=== PATIENT | female | born 1965 | race Caucasian/White ===

== ENCOUNTER 2021-10-22 06:53 | Emergency (ER) | payer OTHER, SELFPAY ==
--- NOTE | ~2021-10-22 | XR_ITS ---
EXAMINATION: XR chest 2V DATE: 10/22/2021 07:32 INDICATION: Shortness of breath. Left chest pain. Cough. TECHNIQUE: Frontal and lateral views of the chest were obtained. COMPARISON: Chest single view 03/11/2011 FINDINGS: The chest demonstrates clear lungs without pneumonia, pleural effusion, or pneumothorax. Th e heart size is normal. Surgical clips in the right upper quadrant are likely from cholecystectomy. IMPRESSION: 1. No acute cardiopulmonary disease. Reviewed, dictated and finalized at location A. [employer]ER
[2021-10-22 06:56] VITALS: BP 188/104; PULSE 93; RESP 22; TEMP 36.8; O2SAT 94; O2SAT 95
--- NOTE | 2021-10-22 07:08 | ECG_ITS ---
Measurements Intervals [place] Rate: 85 P: 53 SD: 184 QRS: 37 QRSD: 86 T: 50 QT: 364 QTc: 434 Interpretive Statements SINUS RHYTHM POSSIBLE LEFT ATRIAL ENLARGEMENT [-0.1mV P-WAVE IN V1/V2] RSR' V1 AND V2 BORDERLINE ECG NO PREVIOUS ECG AVAILABLE FOR COMPARISON Electronically Signed On 10-22-2021 14:28:12 [employer] by Ramses Hurst M.D.
--- NOTE | 2021-10-22 07:24 | ED.SOB ---
HPI - SOB/Dyspnea General Chief Complaint: Shortness of Breath/Dyspnea Stated Complaint: shortness of breath Time Seen by Provider: 10/22/21 07:01 Source: patient and RN notes reviewed Mode of arrival: ambulatory Limitations: no limitations History of Present Illness HPI Narrative: This is 56 year old female smoke who presents for evaluation of shortness of breath. She noticed shortness of breath around 3 am this morning when she tried to lay back down in bed. She feels like she is unable to take deep breath and she developed productive cough . She is also reporting wheezing. She had 1 other similar episode before but it did not last this long. She is having associated sinus drainage but denies fever or chills. She was diagnosed with covid 1 month ago. She denies history of CHF, PE or DVT. She is not having leg swelling. She states she tried her cats albuterol but it caused her to have chest pain. MD elicited complaint: shortness of breath Onset (ago): hour(s) Context: recent illness (covid 1 month ago) Exacerbating factors: lying flat Relieving factors: nothing Treatment prior to arrival: bronchodilator Related Data Home oxygen amount: none Allergies Allergy/AdvReac Type Severity Reaction Status Date / Time SWEETNER Allergy Unknown Unknown Uncoded 10/22/21 07:07 Review of Systems Review of Systems: All systems reviewed & are unremarkable except as noted in HPI and below Constitutional: Constitutional: Denies chills and Denies fever(s) ENT: Reports nasal congestion and Denies sore throat Cardiovascular: Cardiovascular: Reports chest pain and Denies radiating jaw, neck or arm pain Respiratory: Respiratory: Reports cough, Reports dyspnea and Reports wheezing Gastrointestinal: Gastrointestinal: Denies abdominal pain, Reports nausea and Denies vomiting Neurologic: Reports headache(s) [facility] Past Medical History Medical History (Updated 10/22/21 @ 08:22 by Coty Espinal MD) Hypertension Hypothyroidism Social History Social History (Updated 10/22/21 @ 07:24 by Coty Espinal MD) Smoking packs per day: 1 Smoking cigarettes per day: 20.0 Smoking status: Current every day smoker Exam Const: General: no acute distress and alert Nutritional Appearance: obese Orientation/consciousness: patient oriented x3 Eyes: EOM: EOMs intact bilaterally Resp: Effort & Inspection: normal respiratory effort and no retractions Auscultation: clear to auscultation bilaterally Cardio: Rate: regular rate Rhythm: regular rhythm Heart sounds: no murmurs GI: GI Palp: Yes Soft to palpation, No Tenderness to palpation present (GI) and No Guarding due to palpation present (GI) Auscultation: normal bowel sounds Skin: General skin exam: normal color Rashes: no rashes Neuro: General: patient oriented x3, moves all extremities and CN's II-XI intact bilaterally Extrem: General: normal to inspection Psych: Mental Status: mental status grossly normal Affect: normal affect Course Reevaluation(s) Reevaluation #1: Patient states she feels better after albuterol tx. She was able to ambulate and she reports she feels better. able to keep oxygen saturation above 91% on room air. I Discussed discharge plan to discharge with albuter, steroids and follow up with PCP next week. Date: 10/22/21 Time: 08:20 Vital Signs Vital signs: Vital Signs Temperature 98.2 F 10/22/21 06:56 Pulse Rate 93 10/22/21 06:56 Respiratory Rate 22 H 10/22/21 06:56 Blood Pressure 188/104 H 10/22/21 06:56 Pulse Oximetry 95 10/22/21 06:56 Temperature 98.2 F 10/22/21 06:56 Pulse Rate 87 10/22/21 08:36 Respiratory Rate 16 10/22/21 08:36 Blood Pressure 150/97 H 10/22/21 08:36 Pulse Oximetry 94 10/22/21 08:36 MDM - SOB/Dyspnea Medical Records Attestation: I reviewed the patient's medical records. Lab Data Attestation: I reviewed the patient's lab results. Result diagrams: 10/22/21 07:16
[2021-10-22 07:33] LABS: Basophils Absolute Auto 0.2 K/mm3 (0.0-0.1); Basophils Percent Auto 1.5 % (0.2-1.2); Eosinophils Absolute Auto 0.3 K/mm3 (0-0.3); Eosinophils Percent Auto 2.6 % (0-4.4); Hematocrit 52.9 % (37.0-47.0); Hemoglobin 17.3 g/dL (12.0-15.0); Immature Granulocyte Absolute 0.04 K/mm3 (0.00-0.031); Immature Granulocyte Percent A 0.4 % (0-0.5); Lymphocytes Percent Auto 30.5 % (18.3-44.2); Mean Corpuscular HGB Conc 32.7 g/dl (32-36); Mean Corpuscular Hemoglobin 29.5 pg (26-34); Mean Corpuscular Volume 90.1 fl (80-100); Mean Platelet Volume 9.2 fl (7.4-10.4); Monocytes Absolute Auto 0.9 K/mm3 (0.1-0.6); Neutrophils Absolute Auto 5.5 K/mm3 (1.3-6.7); Platelet Count Result 366 k/mm3 (150-375); Red Blood Count 5.87 M/mm3 (4.2-5.4); Red Cell Distribution Width 14.2 % (11.5-14.5); White Blood Count 9.9 K/mm3 (4.5-10.0)
[2021-10-22 07:34] LABS: Alanine Aminotransferase 76 U/L (4-35); Albumin Level 4.3 g/dL (3.5-5.1); Alkaline Phosphatase 130 U/L (38-126); Anion Gap 8 mmol/L (8-16); Aspartate Amino Transferase 44 U/L (14-36); Bilirubin,Total 0.5 mg/dL (0.2-1.3); Blood Urea Nitrogen 24 mg/dL (7-17); Calcium 8.9 mg/dL (8.4-10.2); Carbon Dioxide 31 mmol/L (22-30); Chloride 104 mmol/L (98-107); Estimated CRCL calculation 93 ml/min; Estimated Glomerular Filt Rate > 60; Glucose 105 mg/dL (65-110); Potassium 3.7 mmol/L (3.4-5.0); Sodium 143 mmol/L (137-145)
[2021-10-22] MEDS: ALBUTEROL SULFATE (*SP) AEROSOL 1 PUFF 2 PUFF INHALATION (07:36)
[2021-10-22 07:39] LABS: Prothrombin Time 12.6 Seconds (11.1-14.7)
[2021-10-22 07:40] LABS: Partial Thromboplastin Time 31.2 SECONDS (22.3-36.8)
[2021-10-22 07:42] LABS: D Dimer 0.32 ug/mL (<0.48)
[2021-10-22 07:44] LABS: NT Pro B Type Natriuretic Pept 64 pg/mL (5-100); Troponin I < 0.012 ng/mL (0.000-0.034)
[2021-10-22 07:45] VITALS: BP 154/102; PULSE 84; RESP 18; O2SAT 92
[2021-10-22] MEDS: lisinopriL 10 MG TABLET PO (07:45)
[2021-10-22 07:58] VITALS: BP 143/85
[2021-10-22] MEDS: hydroCHLOROthiazide 12.5 MG CAPSULE PO (08:19)
[2021-10-22 08:36] VITALS: BP 150/97; PULSE 87; RESP 16; O2SAT 94
== END 2021-10-22 08:37 | disposition home or self-care (01) ==
PROVIDERS: Emergency Provider General Practice; PCP Physician Assistant
DX: R06.00 Dyspnea, unspecified (principal); E03.9 Hypothyroidism, unspecified; I10 Essential (primary) hypertension; Z86.16 Personal history of COVID-19; R94.31 Abnormal electrocardiogram [ECG] [EKG]
CPT/HCPCS: 36415; 71046; 80053; 83880; 84484; 85025; 85380; 85610; 85730; 93005; 99284; A9270

== ENCOUNTER 2022-03-31 16:01 | Emergency (ER) | payer OTHER, SELFPAY ==
--- NOTE | ~2022-03-31 | XR_ITS ---
XR wrist LT min 3V DATE: 03/31/2022 16:39 INDICATION: Fell on left wrist today. Medial swelling. Generalized pain. TECHNIQUE: 3 views COMPARISON: 03/11/2011 left wrist FINDINGS: There is a virtually nondisplaced intra-articular fracture of the distal radius with dorsal inclination of the distal radial articular surface. The distal ulna is intact. Radiocarpal alignment is preserved. There is mild widening at the scapholunate joint. Minimal osteoarthritis at the first carpometacarpal joint. IMPRESSION: Virtually nondisplaced intra-articular fracture of the distal radius with dorsal inclinat ion of distal radial articular surface Scapholunate joint widening, new since 03/11/2011 Reviewed, dictated and finalized at location B. IMPRESSION: Virtually nondisplaced intra-articular fracture of the distal radiu s with dorsal inclination of distal radial articular surface Scapholunate joint widening, new since 03/11/2011
[2022-03-31 16:02] VITALS: BP 148/74; PULSE 91; RESP 16; TEMP 36.1; O2SAT 97
--- NOTE | 2022-03-31 16:36 | ED.UPPEXIN ---
HPI - Extremity Injury (Upper) General Chief Complaint: Extremity Injury, Upper Stated Complaint: left wrist pain, fall Time Seen by Provider: 03/31/22 16:17 Source: patient, RN notes reviewed and old records reviewed Mode of arrival: ambulatory Limitations: no limitations History of Present Illness HPI narrative: This is a 57 year old female right hand dominant who presents for evaluation of left wrist pain s/p fall. Patient had just mopped her floor, and she slipped walking into kitchen. She fell onto her left wrist and right knee. She has been able to ambulate but she does have right knee abrasion. She has chronic left wrist pain but after the fall she has left wrist deformity and swelling. She also reports chronic numbness to lateral left arm, wrist and fingers. She denies hitting her head or LOC. Pain worse with movement. Related Data Allergies Allergy/AdvReac Type Severity Reaction Status Date / Time SWEETNER Allergy Unknown Unknown Uncoded 10/22/21 07:07 Review of Systems Review of Systems: All systems reviewed & are unremarkable except as noted in HPI and below Constitutional: Constitutional: Denies chills and Denies fatigue Cardiovascular: Cardiovascular: Denies chest pain Respiratory: Respiratory: Denies chest congestion and Denies cough Musculoskeletal: Musculoskeletal: Reports arthralgias (left wrist) and Reports joint swelling (left wrist) Neurologic: Denies syncope, Denies headache(s) and Reports numbness (chronic) PMFSH Past Medical History Medical History Hypertension Hypothyroidism Social History Social History (Updated 10/22/21 @ 07:24 by Coty Espinal MD) Smoking packs per day: 1 Smoking cigarettes per day: 20.0 Smoking status: Current every day smoker Exam Const: General: alert Nutritional Appearance: well nourished Orientation/consciousness: patient oriented x3 Limitations: no limitations HENMT: Head: normal to inspection Face and sinus: normal facial exam Mouth: Yes Normal oral and palatal mucosa present and Yes lip normal Eyes: EOM: EOMs intact bilaterally Neck: Neck: normal visual inspection and no lymphadenopathy Chest: Chest palpation & inspection: normal inspection of the chest Resp: Effort & Inspection: normal respiratory effort Auscultation: clear to auscultation bilaterally Cardio: Rate: regular rate Rhythm: regular rhythm Heart sounds: no murmurs Skin: Other: abrasion to right anterior knee Neuro: General: patient oriented x3, moves all extremities and CN's II-XI intact bilaterally Extrem: Other: left wrist deformity and swelling Course Consultations Consultation #1: I Discussed xray with DR. Frye. He is okay with placing patient in splint and her to follow up in clinic next week. Date: 03/31/22 Time: 17:05 Vital Signs Vital signs: Vital Signs Temperature 96.9 F L 03/31/22 16:02 Pulse Rate 91 03/31/22 16:02 Respiratory Rate 16 03/31/22 16:02 Blood Pressure 148/74 H 03/31/22 16:02 Pulse Oximetry 97 03/31/22 16:02 Oxygen Delivery Room Air 03/31/22 16:02 Temperature 98.3 F 03/31/22 18:25 Pulse Rate 80 03/31/22 18:25 Respiratory Rate 16 03/31/22 18:25 Blood Pressure 136/76 03/31/22 18:25 Pulse Oximetry 98 03/31/22 18:25 Oxygen Delivery Room Air 03/31/22 16:02 Procedures Orthopedic Splinting/Casting Injury #1: Splinting/Casting Date: 03/31/22 Splinting/Casting Time: 17:30 Side: left Upper Extremity Injury Location: wrist Upper Extremity Immobilizer: sugar tong splint Splint: customized in ED OCL: short arm Pre-Procedure Neuro Vascular Exam: normal Post-Procedure Neuro Vascular Exam: normal MDM - Extremity Injury (Upper) Medical Records Attestation: I reviewed the patient's medical records. Imaging Data Radiologist's impression: ITS Impressions Wrist X-
[2022-03-31] MEDS: HYDROmorphone HCL INJ (*CRX) 1 MG/ML SYR 0.5 MG IV PUSH ×2 (16:40→17:43)
[2022-03-31] MEDS: ONDANSETRON INJ 4 MG/2 ML VIAL IV PUSH ×2 (16:40→17:43)
[2022-03-31] MEDS: TETANUS,DIPHTHERIA,AC PERTUSSIS ADULT (0.5 ML) BOOSTRIX IM (16:40)
--- NOTE | 2022-03-31 16:44 | PC.NURSE ---
refused xray of the knee at this time. Pt reports she does not feel her knee is FX and does not want to stand at this time
[2022-03-31 18:25] VITALS: BP 136/76; PULSE 80; RESP 16; TEMP 36.8; O2SAT 98
== END 2022-03-31 18:26 | disposition home or self-care (01) ==
PROVIDERS: Emergency Provider General Practice; PCP Family Medicine
DX: S52.572A Other intraarticular fracture of lower end of left radius, initial encounter for closed fracture (principal); S80.211A Abrasion, right knee, initial encounter; Z23 Encounter for immunization; I10 Essential (primary) hypertension; E03.9 Hypothyroidism, unspecified; F17.210 Nicotine dependence, cigarettes, uncomplicated; W01.0XXA Fall on same level from slipping, tripping and stumbling without subsequent striking against object, initial encounter
CPT/HCPCS: 29125; 73110; 90471; 90715; 96374; 96375; 96376; 99284; A4565; J1170; J2405